=== PATIENT | female | born 1955 | race Caucasian/White ===

== ENCOUNTER 2016-04-06 09:34 | Day surgery (SDC) | payer OTHER ==
[~2016-04-06 09:34] MED LIST: LIDOCAINE W/ SODIUM BICARB 0.5 ML SYR ONE
[2016-04-06 10:30] VITALS: RESP 16
[2016-04-06] MEDS ORDERED: BETAMET ACET/BETAMET NA PH 6 MG/1 ML - 5 ML IAC ONE (10:30)
[2016-04-06] MEDS ORDERED: LIDOCAINE 2% 20 MG/ML - 20 ML VIAL IM ONE (10:30)
[2016-04-06] MEDS ORDERED: ROPIVACAINE HCL 7.5 MG/1 ML - 20 ML IAC ONE (10:30)
[2016-04-06 11:14] VITALS: TEMP 97.7
== END 2016-04-06 11:05 | disposition home or self-care (01) ==
LOC: SDSC 09:34
PROVIDERS: ATTEND Orthopaedic Surgery
DX: M16.11 Unilateral primary osteoarthritis, right hip (principal)
CPT/HCPCS: 20610 ×2; 76000; J0702; J2001

== ENCOUNTER → 2016-04-28 | Outpatient (CLI) | payer OTHER | LOC: LAB 15:05 | DX: N30.01 Acute cystitis with hematuria (principal); R82.99 Other abnormal findings in urine | CPT/HCPCS: 87077; 87088; 87186 ==

== ENCOUNTER → 2016-05-07 | Outpatient (CLI) | payer OTHER ==
--- NOTE | 2016-05-09 21:32 | DI ---
MRI RIGHT HIP SCAN, 05/07/2016 8:50 AM: Clinical History: Right hip pain. Previous Exam: None at this facility. Technique: Axial fat saturated T2 weighted and oblique axial PD; coronal and sagittal PD and fat satu rated PD; anterior and posterior oblique coronal fat saturated PD. This patient has a high BMI and this precludes optimum positioning of the patient's hip close to the center of the bore of the magnet for maximum [id number] ratio. However, the scans are still of e xcellent quality. There is no soft tissue edema. A large joint effusion is present and there is synovitis. Abnormally i ncreased signal intensity is present in the femoral head predominantly along the superior and lateral aspect and this extends inferiorly into the neck. No evidence of subchondral sclerosis is seen to in dicate this increased signal intensity is secondary to a fracture. There is excessive acetabular cove rage by bone along the superior and inferior aspect of the acetabulum. There is a dysplastic "bump" s uperiorly at the level of the physis. Subchondral cysts have developed in the posterior and inferior portion of the acetabulum with beginning of some cystic change in the mediosuperior portion of the fe moral head. Cystic changes have developed in the prominent overhanging portion of the superior and la teral portion of the acetabulum. The alpha angle is 54 degrees. There is no retroversion of the aceta bulum. There is a tear in the anterosuperior quadrant of the acetabular labrum and this is in proximi ty to some cysts in the acetabulum where there is increase acetabular coverage superiorly. There may be a small "contrecoup" acetabular tear in the posteroinferior quadrant. There is marked thinning of the chondral surfaces of both the femoral head and the acetabulum. The surrounding ligaments includin g the ligamentum teres are intact. Readin. Large joint effusion with synovitis. There is acetabular over coverage particularly along the sup erior lateral margin, and there is a dysplastic "bump". There is a small tear in the acetabulum in th e anterosuperior quadrant and there is a suspected small tear in the posteroinferior quadrant represe nting a "contrecoup" tear. 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 2. Subchondral cysts are present both in the acetabulum as well as in the femoral head and there is thinning of the cartilage on the femoral head and in the acetabulum. 3. There is bone edema but the exact etiology is uncertain. No subchondral sclerosis in the femoral head is identified to indicate this would be secondary to an occult fracture.
== END ==
LOC: MRI 08:45
PROVIDERS: ATTEND Orthopaedic Surgery
DX: M25.551 Pain in right hip (principal); M25.451 Effusion, right hip; S73.191A Other sprain of right hip, initial encounter
CPT/HCPCS: 73721

== ENCOUNTER → 2016-10-06 | Outpatient (CLI) | payer OTHER ==
[2016-10-06 14:37] LABS: HEMATOCRIT 43.4 % (37.0-47.0); HEMOGLOBIN 14.1 g/dL (12.0-16.0); MEAN CORPUSCULAR HEMOGLOBIN 30.7 PG (27-31); MEAN CORPUSCULAR HGB CONC 32.5 g/dL (33-37); MEAN CORPUSCULAR VOLUME 94.6 FL (81-99); MEAN PLATELET VOLUME 12.4 FL (7.4-12.2); RED BLOOD COUNT 4.59 10^6/uL (4.20-5.40)
[2016-10-06 14:45] LABS: BILIRUBIN,URINE NEGATIVE (NEG); CLARITY,URINE CLEAR (CLEAR); COLOR,URINE YELLOW; GLUCOSE, URINE (UA) NEGATIVE (NEG); NITRATE,URINE NEGATIVE (NEG); OCCULT BLOOD,URINE NEGATIVE (NEG); PROTEIN,URINE NEGATIVE (NEG); UROBILINOGEN,URINE 0.2 EU/dL (0.2)
[2016-10-06 14:46] LABS: BLOOD UREA NITROGEN 15 mg/dL (7-22); BUN/CREATININE RATIO 18.75 (6-20); CALCIUM 9.2 mg/dL (8.7-10.7); EST GLOMERULAR FILTRATION > 60 (>60 ml/min/1.73m(2)); SERUM ALBUMIN 3.8 g/dL (3.5-4.8)
[2016-10-06 14:52] LABS: BACTERIA,URINE MANY; SQUAMOUS EPITHELIAL CELL,UR RARE; URINE SAMPLE TYPE VOIDED SPECIMEN
== END ==
LOC: LAB 10:25
PROVIDERS: ATTEND Physician Assistant Medical
DX: M25.551 Pain in right hip (principal)
CPT/HCPCS: 80053; 81001; 85027; 85610; 85730; 87077; 87088; 87186